=== PATIENT | male | born 1955 | race Caucasian/White ===

== ENCOUNTER → 2017-06-02 | Outpatient (CLI) | payer OTHER ==
[~2017-06-02] MED LIST: ALLERCLEAR10 MG PO; AMLODIPINE BESYL5 MG PO; LO-DOSE ASPIRIN81 M1 PO; NEXIUM20 MG PO; SIMVASTATIN10 MG PO
[2017-06-02 14:17] LABS: HEMOGLOBIN 15.3 gm/dL (13.0-16.0); MEAN CELL VOLUME 88.7 FL (83-96); MEAN CORPUSCULAR HEMOGLOBIN 30.9 PG (28-34); MEAN CORPUSCULAR HGB CONC 34.8 g/dL (30-36); MEAN PLATELET VOLUME 7.5 FL (6.5-11.5); RED BLOOD COUNT 4.96 X10e (3.90-5.60); RED CELL DISTRIBUTION WIDTH 12.9 % (11.0-15.5); WHITE BLOOD COUNT 7.5 X10e3 (4.0-10.5)
[2017-06-02 14:44] LABS: BUN/CREATININE RATIO 21.81; CALCIUM SERUM 9.8 mg/dL (8.4-10.2); CREATININE SERUM 1.1 mg/dL (0.6-1.4); GLOM FILT RATE Estimated 71.1 mL/min (>60); POTASSIUM 4.1 mmol/L (3.5-5.1)
== END | disposition home or self-care (01) ==
LOC: CAMB 13:50
PROVIDERS: Specialist
DX: Z01.812 Encounter for preprocedural laboratory examination (principal)
CPT/HCPCS: 36415; 80048; 85027

== ENCOUNTER → 2017-06-10 | Day surgery (SDC) | payer OTHER ==
--- NOTE | ~2017-06-10 | OR ---
Unit #: [id number] #: [id number] Patient: FLOR SKY [id number] [facility] [address] [facility]. [place], [place] [address] [id number] MR#: [id number] NAME: FLOR SKY ROOM: Date of Procedure: 06/10/2017 Admission Date: 06/10/2017 Surgeon: Ralph Garcia M.D. : 1955 Attending Physician: Ralph Garcia M.D. OPERATIVE REPORT PREOPERATIVE DIAGNOSIS Bilateral inguinal hernia. POSTOPERATIVE DIAGNOSIS Bilateral direct inguinal hernia. PROCEDURE PERFORMED Open repair with mesh. ANESTHESIA General endotracheal anesthesia. ESTIMATED BLOOD LOSS Less than 10 mL. INDICATIONS FOR PROCEDURE A 61-year-old gentleman, who has noted bulging in the inguinal canals bilaterally for some period of time, but only recently has this started to cause him discomfort, particularly when doing his usual activities. On examination, he had bilateral reducible inguinal hernias. DESCRIPTION OF PROCEDURE The patient was admitted to [facility], positively identified, and transported to the operating room, and after induction of general endotracheal anesthesia, his abdominal wall hair was clipped, and he was prepped and draped in usual sterile fashion. He received IV antibiotics per SCIP protocol. On the right side, a transverse incision was made in the skin line over the inguinal canal. I dissected down exposing the external oblique aponeurosis, opened the aponeurosis to include the external ring. Ilioinguinal nerve was identified and preserved. The cord structures were elevated from the floor of the inguinal canal. Cremasteric muscle was opened. There was no indirect component. He had a large direct hernia sac. The hernia sac was reduced and then a Bassini-type repair using 0 Ethibond sutures from the shelving edge of the inguinal ligament to the conjoint tendon was performed. The repair was then reinforced with onlay mesh, secured to the pubic tubercle, stretched across the inguinal canal and the tails wrapped around the cord structures. They exited at the internal ring. The mesh was secured to the rectus sheath and the shelving edge of the inguinal ligament. A relaxing incision was made and then local anesthetic was infiltrated to create a field block. Soft tissue was closed with 3-0 Vicryl running suture and then, the skin was reapproximated with 4-0 Monocryl running Unit #: [id number] #: [id number] Patient: FLOR SKY subcuticular closure and Dermabond skin adhesive. I then went to the left side. A mirror image incision was made. Again dissecting down to the external oblique aponeurosis, the aponeurosis opened in the direction of its fibers to include the external ring. Ilioinguinal nerve was preserved. Cord structures were elevated and again he had a large direct inguinal hernia. A Bassini-type repair from shelving edge to conjoined tendon was performed. Again, an onlay mesh support was placed in the same fashion and secured to the rectus sheath and the shelving edge of the inguinal ligament. The cord structures were placed back in the anatomic position. Again, a field block was performed with 0.5% Marcaine with epinephrine and a total of 30 mL was used on both sides. The cord was placed back in the anatomic position. Soft tissue was closed with 3-0 Vicryl running suture and the skin was reapproximated with 4-0 Monocryl running subcuticular closure and then Dermabond skin adhesive. Sponges and needle counts were correct x3. The patient tolerated the procedure well and was transported to the recovery in stable condition. Findings and postoperative instructions were discussed with both the patient and his . Dictated by... Susanne Sahu/stephie TD: 06/11/2017 04:49 JOB #: [id number] OPERATIVE REPORT Page 1 of 1 X Ralph Garcia MD X PROCEDURE OPERATIVE NOTE
== END | disposition home or self-care (01) ==
LOC: CSUR 05:24
DX: K40.20 Bilateral inguinal hernia, without obstruction or gangrene, not specified as recurrent (principal); I10 Essential (primary) hypertension; K21.9 Gastro-esophageal reflux disease without esophagitis; E78.5 Hyperlipidemia, unspecified; Z87.442 Personal history of urinary calculi; Z87.891 Personal history of nicotine dependence; Z79.82 Long term (current) use of aspirin; Z79.899 Other long term (current) drug therapy; Z98.890 Other specified postprocedural states
CPT/HCPCS: C1781; J0330; J0690; J1100; J1885; J2250; J2405; J3010